=== PATIENT | male | born 1990 | race Caucasian/White ===

== ENCOUNTER 2023-09-08 12:06 | Emergency (ER) | payer MEDICAID ==
[~2023-09-08] VITALS: Ht 167.6 cm; Wt 79.4 kg
[2023-09-08 12:14] VITALS: BP 139/90; TEMP 98.3
[2023-09-08 14:13] VITALS: O2SAT 100
== END 2023-09-08 14:14 | disposition home or self-care (01) ==
LOC: ER 12:06
DX: R07.0 Pain in throat (principal)
CPT/HCPCS: 70360-TC

== ENCOUNTER 2023-12-14 14:23 | Emergency (ER) | payer MEDICAID ==
[~2023-12-14] VITALS: Ht 167.6 cm; Wt 79.4 kg
[2023-12-14 14:45] VITALS: TEMP 98.3
[2023-12-14] MEDS: KETOROLAC TROMETHAMINE 15 MG/ML VIAL IV ONE (15:03)
[2023-12-14] MEDS: IV NS 0.9% 1,000 ML BAG IV ONE (15:03)
[2023-12-14] MEDS ORDERED: KETOROLAC TROMETHAMINE 15 MG/ML VIAL ONE (15:05)
[2023-12-14] MEDS ORDERED: IV NS 0.9% 250 ML IV ONE (15:30)
[2023-12-14] MEDS ORDERED: IOHEXOL-300 100 ML VIAL IV ONE (15:30)
[2023-12-14 15:31] LABS: BASOPHILS % (AUTO) 0.3 % (0.0-2.0); EOSINOPHILS # (AUTO) 0.2 K/uL (0.0-0.7); EOSINOPHILS % (AUTO) 3.1 % (0.0-6.0); HEMATOCRIT 40 % (39-51); HEMOGLOBIN 13.5 g/dL (13.5-17.5); LYMPHOCYTES % (AUTO) 24.9 % (20.0-44.0); MEAN CORPUSCULAR HEMOGLOBIN 31 PG (26.0-33.0); MEAN CORPUSCULAR HGB CONC 34 g/dl (31.0-36.0); MEAN CORPUSCULAR VOLUME 90 fL (80-96); MONOCYTES # (AUTO) 0.5 K/uL (0.1-1.30); MONOCYTES % (AUTO) 6.9 % (2.0-12.0); NEUTROPHILS # (AUTO) 5.1 K/uL (1.8-8.9); NEUTROPHILS % (AUTO) 64.8 % (43.0-81.0); PLATELET COUNT (AUTO) 308 K/uL (150-450); RED BLOOD CELL COUNT(AUTO) 4.41 MIL/uL (4.5-6.0); RED CELL DISTRIBUTION WIDTH 13.1 % (11.5-15.0); WHITE BLOOD COUNT (AUTO) 7.9 K/uL (4.3-11.0)
[2023-12-14 15:47] LABS: ALANINE AMINOTRANSFERASE 16 U/L (12-78); ALBUMIN 4.8 g/dL (3.4-5.0); ALKALINE PHOSPHATASE 40 U/L (46-116); ASPARTATE AMINOTRANSFERASE 18 U/L (15-37); BILIRUBIN,DIRECT 0.1 mg/dL (0.0-0.2); BILIRUBIN,TOTAL 0.5 mg/dL (0.2-1.0); CALCIUM, SERUM 9.6 mg/dL (8.5-10.1); CARBON DIOXIDE 28 mmol/L (21-32); CHLORIDE 105 mmol/L (98-107); GLUCOSE 99 mg/dL (74-106); LIPASE 34 U/L (16-77); POTASSIUM 3.9 mmol/L (3.5-5.1); SODIUM SERUM 139 mmol/L (136-145); TOTAL PROTEIN, SERUM 7.8 g/dL (6.4-8.2); UREA NITROGEN, BLOOD 10 mg/dL (7-18)
[2023-12-14 16:01] LABS: APPEARANCE,URINE Clear (CLEAR); BILIRUBIN,URINE Negative (NEGATIVE); BLOOD, URINE Negative Ery/uL (NEGATIVE); COLOR,URINE YELLOW (YELLOW); KETONES,URINE Negative (NEGATIVE); LEUKOCYTE ESTERASE ,URINE Negative (NEGATIVE); NITRITE, URINE Negative (NEGATIVE); PROTEIN,URINE Negative (NEGATIVE); UGLUCOSE Negative (NEGATIVE); UROBILINOGEN,URINE 0.2 EU/dL (0.2)
[2023-12-14 16:28] LABS: INR 1.08 (0.91-1.10); PROTHROMBIN TIME 11.4 SECS (9.2-11.1)
[2023-12-14 16:54] VITALS: BP 139/98; O2SAT 98
== END 2023-12-14 16:54 | disposition home or self-care (01) ==
LOC: ER 14:35
DX: R07.89 Other chest pain (principal); R10.32 Left lower quadrant pain; Z86.69 Personal history of other diseases of the nervous system and sense organs
CPT/HCPCS: 99285; 74177; 96374; 71045; 96361; 93005; 85025; 80048; 83690; 80076; 81003; 36415; 84484; 85730; J7030; J7050; Q9967; J1885

== ENCOUNTER 2024-01-26 13:02 | Emergency (ER) | payer MEDICAID ==
[~2024-01-26] VITALS: Ht 167.6 cm; Wt 77.6 kg
[2024-01-26 13:28] VITALS: TEMP 98.3
[2024-01-26] MEDS: IV NS 0.9% 1,000 ML BAG IV ONE (13:52)
[2024-01-26] MEDS ORDERED: PROCHLORPERAZINE EDISYLATE 10 MG/2 ML VIAL ONE (13:53)
[2024-01-26] MEDS ORDERED: diphenhydrAMINE HCL 50 MG/ML VIAL ONE (13:53)
[2024-01-26] MEDS: diphenhydrAMINE HCL 50 MG/ML VIAL IV ONE (14:00)
[2024-01-26] MEDS: PROCHLORPERAZINE EDISYLATE 10 MG/2 ML VIAL IM/IV ONE (14:05)
[2024-01-26 14:20] LABS: BASOPHILS % (AUTO) 0.3 % (0.0-2.0); EOSINOPHILS # (AUTO) 0.1 K/uL (0.0-0.7); EOSINOPHILS % (AUTO) 1.9 % (0.0-6.0); HEMATOCRIT 41 % (39-51); HEMOGLOBIN 13.9 g/dL (13.5-17.5); LYMPHOCYTES # (AUTO) 2.5 K/uL (0.8-4.8); LYMPHOCYTES % (AUTO) 34.2 % (20.0-44.0); MEAN CORPUSCULAR HEMOGLOBIN 30 PG (26.0-33.0); MEAN CORPUSCULAR HGB CONC 34 g/dl (31.0-36.0); MEAN CORPUSCULAR VOLUME 88 fL (80-96); MONOCYTES # (AUTO) 0.5 K/uL (0.1-1.30); MONOCYTES % (AUTO) 6.6 % (2.0-12.0); NEUTROPHILS # (AUTO) 4.2 K/uL (1.8-8.9); PLATELET COUNT (AUTO) 335 K/uL (150-450); RED CELL DISTRIBUTION WIDTH 13.4 % (11.5-15.0); WHITE BLOOD COUNT (AUTO) 7.3 K/uL (4.3-11.0)
[2024-01-26 15:23] LABS: CALCIUM, SERUM 9.8 mg/dL (8.5-10.1); CREATININE 0.9 mg/dL (0.6-1.3); POTASSIUM 4.4 mmol/L (3.5-5.1)
[2024-01-26 15:58] VITALS: BP 120/85; O2SAT 99
== END 2024-01-26 15:46 | disposition home or self-care (01) ==
LOC: ER 13:04
DX: R51.9 Headache, unspecified (principal); R03.0 Elevated blood-pressure reading, without diagnosis of hypertension; R20.2 Paresthesia of skin
CPT/HCPCS: 99285; 96374; 70450; 96361; 96375; 85025; 80048; 36415; J0780; J1200; J7030

== ENCOUNTER 2024-04-22 12:51 | Emergency (ER) | payer MEDICAID ==
[~2024-04-22] VITALS: Ht 167.6 cm; Wt 77.1 kg
[2024-04-22 14:22] VITALS: BP 138/85; TEMP 97.9
[2024-04-22] MEDS ORDERED: diphenhydrAMINE HCL ELIX 25 MG/10 ML UDC ONE (15:02)
[2024-04-22] MEDS ORDERED: IBUPROFEN 600 MG TABLET ONE (15:02)
[2024-04-22] MEDS: DIPHENHYDRAMINE HCL 12.5 MG/5 ML UDC PO ONE (15:07)
[2024-04-22] MEDS: IBUPROFEN 600 MG TABLET PO ONE (15:08)
[2024-04-22 15:15] LABS: BASOPHILS % (AUTO) 0.3 % (0.0-2.0); EOSINOPHILS # (AUTO) 0.1 K/uL (0.0-0.7); EOSINOPHILS % (AUTO) 1.5 % (0.0-6.0); HEMATOCRIT 42 % (39-51); LYMPHOCYTES # (AUTO) 1.9 K/uL (0.8-4.8); LYMPHOCYTES % (AUTO) 19.1 % (20.0-44.0); MEAN CORPUSCULAR HEMOGLOBIN 30 PG (26.0-33.0); MEAN CORPUSCULAR HGB CONC 34 g/dl (31.0-36.0); MEAN CORPUSCULAR VOLUME 89 fL (80-96); MONOCYTES # (AUTO) 0.7 K/uL (0.1-1.30); MONOCYTES % (AUTO) 6.7 % (2.0-12.0); NEUTROPHILS # (AUTO) 7.1 K/uL (1.8-8.9); NEUTROPHILS % (AUTO) 72.4 % (43.0-81.0); PLATELET COUNT (AUTO) 339 K/uL (150-450); RED BLOOD CELL COUNT(AUTO) 4.68 MIL/uL (4.5-6.0); RED CELL DISTRIBUTION WIDTH 13.2 % (11.5-15.0); WHITE BLOOD COUNT (AUTO) 9.8 K/uL (4.3-11.0)
[2024-04-22 15:19] LABS: ERYTHROCYTE SEDIMENTATION RATE 4 MM/HR (0-15)
[2024-04-22 15:23] LABS: CALCIUM, SERUM 9.6 mg/dL (8.5-10.1); CREATININE 0.9 mg/dL (0.6-1.3); POTASSIUM 3.8 mmol/L (3.5-5.1)
[2024-04-22 15:28] LABS: INR 1.05 (0.91-1.10); PROTHROMBIN TIME 11.1 SECS (9.2-11.1)
[2024-04-22 15:29] LABS: ALBUMIN 5.2 g/dL (3.4-5.0); BILIRUBIN,DIRECT 0.1 mg/dL (0.0-0.2); BILIRUBIN,TOTAL 0.4 mg/dL (0.2-1.0); TOTAL PROTEIN, SERUM 8.6 g/dL (6.4-8.2)
[2024-04-22 17:00] LABS: MONOTEST NEGATIVE (NEGATIVE)
[2024-04-22] MEDS ORDERED: IBUP-1490 PO (17:29)
[2024-04-22 17:34] VITALS: O2SAT 95
== END 2024-04-22 17:35 | disposition home or self-care (01) ==
LOC: ER 12:53
DX: R51.9 Headache, unspecified (principal); M54.2 Cervicalgia; H92.02 Otalgia, left ear; R07.9 Chest pain, unspecified; R42 Dizziness and giddiness; Z86.69 Personal history of other diseases of the nervous system and sense organs; Z20.822 Contact with and (suspected) exposure to COVID-19
CPT/HCPCS: 99284; 70450; 71045; 87426; 87804 ×2; 85025; 80048; 80076; 86308; 85652; 36415; 85730; Q0163